=== PATIENT | female | born 1930 | race Caucasian/White ===

== ENCOUNTER 2017-09-14 21:11 | Emergency (ER) | payer MEDICARE, OTHER ==
[~2017-09-14] VITALS: Ht 154.9 cm; Wt 56.7 kg
--- NOTE | 2017-09-14 21:40 | NUR ---
TO BED 4 AN 87 YO FEMALE PATIENT BIBFAMILY C/O LEFT LOWER LEG SWELLING AND REDNESS. DISTAL CMS INTACT. NAD NOTED. VSS. PATIENT WITH O2 CANNULA AT 4LPM FROM HOME, HX COPD. COMFORT MEASURES RENDERED.
[2017-09-14] MEDS ORDERED: PIPERACILLIN /TAZOBACTAM 3.375 G VIAL IV ONE (22:29)
[2017-09-14] MEDS ORDERED: PIPERACILLIN /TAZOBACTAM 3.375 G in IV D5W 50 ML IV ONE (22:30)
--- NOTE | 2017-09-14 22:35 | NUR ---
started a saline lock on the lac g20, blood drawn and sent to lab.
[2017-09-14 22:48] LABS: BASOPHILS # (AUTO) 0.1 /CMM (0.0-0.2); BASOPHILS % (AUTO) 0.4 % (0.0-2.0); EOSINOPHILS # (AUTO) 0.1 /CMM (0.0-0.7); EOSINOPHILS % (AUTO) 0.5 % (0.0-6.0); HEMATOCRIT 40 % (33-45); HEMOGLOBIN 12.6 g/dL (11.5-14.8); LYMPHOCYTES # (AUTO) 1.8 /CMM (0.8-4.8); LYMPHOCYTES % (AUTO) 14.4 % (20.0-44.0); MEAN CORPUSCULAR HEMOGLOBIN 31 PG (26.0-33.0); MEAN CORPUSCULAR HGB CONC 32 g/dl (31.0-36.0); MEAN CORPUSCULAR VOLUME 97 fL (82-100); MONOCYTES # (AUTO) 0.7 /CMM (0.1-1.30); MONOCYTES % (AUTO) 5.9 % (2.0-12.0); NEUTROPHILS % (AUTO) 78.8 % (43.0-81.0); PLATELET COUNT (AUTO) 329 /CMM (150-450); RDW COEFFICIENT OF VARIATION 14.4 (11.5-15.0); RED BLOOD CELL COUNT(AUTO) 4.08 MIL/uL (4.0-5.2); WHITE BLOOD COUNT (AUTO) 12.6 K/uL (4.3-11.0)
[2017-09-14 23:05] LABS: CALCIUM, SERUM 9.7 mg/dL (8.5-10.1); CARBON DIOXIDE 38 mmol/L (21-32); CHLORIDE 102 mmol/L (98-107); CREATININE 1.2 mg/dL (0.6-1.3); GLUCOSE 116 mg/dL (74-106); POTASSIUM 4.2 mmol/L (3.5-5.1); SODIUM SERUM 141 mmol/L (136-145); UREA NITROGEN, BLOOD 30 mg/dL (7-18)
[2017-09-14 23:08] LABS: ALANINE AMINOTRANSFERASE 37 U/L (12-78); ALBUMIN 3.5 g/dL (3.4-5.0); ALKALINE PHOSPHATASE 38 U/L (46-116); ASPARTATE AMINOTRANSFERASE 28 U/L (15-37); BILIRUBIN,TOTAL 0.3 mg/dL (0.2-1.0)
[2017-09-14 23:29] LABS: INR 0.88 (0.87-1.13); PROTHROMBIN TIME 9.1 SECS (9.5-12.7)
--- NOTE | 2017-09-15 00:28 | NUR ---
IV removed. Catheter intact and site benign. Pressure and 4x4 applied to site. No bleeding noted. Patient discharged to home in stable condition. Written and verbal after care instructions given. Patient verbalizes understanding of instruction. Patient is ambulatory with the use of fww, accompanied by caregiver. Nad on dc. vss. No further complaints.
[2017-09-15 00:29] VITALS: BP 137/70
== END 2017-09-15 00:29 | disposition home or self-care (01) ==
LOC: ER 21:11
DX: L03.116 Cellulitis of left lower limb (principal); J44.9 Chronic obstructive pulmonary disease, unspecified; F41.9 Anxiety disorder, unspecified; F17.200 Nicotine dependence, unspecified, uncomplicated; Z88.6 Allergy status to analgesic agent
CPT/HCPCS: 36415; 80053; 83605; 85025; 85610; 85730; 96365; 99284; A4606; J2543 ×2; J7060; Z7610

== ENCOUNTER 2017-11-27 13:53 | Inpatient (IN) | payer MEDICARE, OTHER ==
[~2017-11-27] VITALS: Ht 154.9 cm; Wt 62.1 kg
--- NOTE | 2017-11-27 14:12 | NUR ---
BIB CAREGVER TO ED FROM HOME DT CONFUSION X 3 DAYS- WORST TODAY. PATIENT RECEIVED AWAKE AND ALERT, NOTED WITH EPISODE OF CONFUSION. PATIENT NOT COOPERATIVE WITH CARE BEING OFFERED AND VERNBALIZING WANTING TO HOME. PATIENT RECEIVED ON O2 VIA NC SATING 98%. PT DENIES ANY CHEST PAIN OR DISCOMFORT. PT IS AFEBRILE. VSS. MD SANDY AT BEDSIDE FOR EVALUATION.
[2017-11-27 14:47] LABS: BASOPHILS # (AUTO) 0.7 /CMM (0.0-0.2); BASOPHILS % (AUTO) 4.5 % (0.0-2.0); EOSINOPHILS % (AUTO) 0.3 % (0.0-6.0); HEMATOCRIT 42 % (33-45); HEMOGLOBIN 13.6 g/dL (11.5-14.8); LYMPHOCYTES # (AUTO) 2.2 /CMM (0.8-4.8); LYMPHOCYTES % (AUTO) 13.7 % (20.0-44.0); MEAN CORPUSCULAR HEMOGLOBIN 32 PG (26.0-33.0); MEAN CORPUSCULAR HGB CONC 33 g/dl (31.0-36.0); MEAN CORPUSCULAR VOLUME 98 fL (82-100); MONOCYTES # (AUTO) 0.8 /CMM (0.1-1.30); MONOCYTES % (AUTO) 5.1 % (2.0-12.0); NEUTROPHILS # (AUTO) 12.4 /CMM (1.8-8.9); NEUTROPHILS % (AUTO) 76.4 % (43.0-81.0); PLATELET COUNT (AUTO) 303 /CMM (150-450); RDW COEFFICIENT OF VARIATION 13.9 (11.5-15.0); RED BLOOD CELL COUNT(AUTO) 4.24 MIL/uL (4.0-5.2); WHITE BLOOD COUNT (AUTO) 16.1 K/uL (4.3-11.0)
[2017-11-27 14:57] LABS: CALCIUM, SERUM 9.4 mg/dL (8.5-10.1); CARBON DIOXIDE 36 mmol/L (21-32); CHLORIDE 99 mmol/L (98-107); CREATININE 1.4 mg/dL (0.6-1.3); GLUCOSE 166 mg/dL (74-106); POTASSIUM 4.2 mmol/L (3.5-5.1); SODIUM SERUM 140 mmol/L (136-145); UREA NITROGEN, BLOOD 40 mg/dL (7-18)
[2017-11-27 15:02] LABS: ALANINE AMINOTRANSFERASE 44 U/L (12-78); ALBUMIN 3.5 g/dL (3.4-5.0); ALKALINE PHOSPHATASE 40 U/L (46-116); ASPARTATE AMINOTRANSFERASE 23 U/L (15-37); BILIRUBIN,DIRECT 0.1 mg/dL (0.0-0.2); BILIRUBIN,TOTAL 0.3 mg/dL (0.2-1.0); TOTAL PROTEIN, SERUM 7.4 g/dL (6.4-8.2)
[2017-11-27 15:03] LABS: ACETAMINOPHEN < 2 ug/ml (10-30); ALCOHOL, BLOOD < 3 mg/dL (0-0); SALICYLATE 2.1 mg/dL (2.8-20.0)
[2017-11-27 15:05] LABS: TROPONIN I < 0.017 ng/mL (0.00-0.056)
[2017-11-27 15:09] LABS: BILIRUBIN,URINE Negative (NEGATIVE); BLOOD, URINE Negative Ery/uL (NEGATIVE); COLOR,URINE Yellow (YELLOW); KETONES,URINE Negative (NEGATIVE); LEUKOCYTE ESTERASE ,URINE Moderate (NEGATIVE); NITRITE, URINE Positive (NEGATIVE); PH,URINE 5.5 (5.0-8.0); PROTEIN,URINE Negative (NEGATIVE); UGLUCOSE Negative (NEGATIVE); UROBILINOGEN,URINE 0.2 EU/dL (0.2)
[2017-11-27 15:10] LABS: APPEARANCE,URINE SLIGHTLY HAZY (CLEAR)
[2017-11-27] MEDS ORDERED: PRED20TA PO (15:11)
[2017-11-27] MEDS ORDERED: LORA0.5T PO (15:11)
[2017-11-27] MEDS ORDERED: TRAZ-144 PO (15:11)
[2017-11-27] MEDS ORDERED: ESCI10TA PO (15:11)
[2017-11-27] MEDS ORDERED: HYDR-3980 PO (15:11)
[2017-11-27] MEDS ORDERED: FURO40TA5 PO (15:11)
[2017-11-27 15:25] LABS: RBC,URINE 0-2 /HPF (0-2); WBC,URINE 21-50 /HPF (0-3)
[2017-11-27 15:26] LABS: BACTERIA,URINE Moderate /HPF (None Seen); SQUAMOUS EPITHELIAL CELL,UR Few /HPF (None Seen)
--- NOTE | 2017-11-27 15:58 | NUR ---
TELE ROOM 310-7
[2017-11-27] MEDS ORDERED: IV NS 0.9% 1,000 ML BAG IV ONE (16:00)
[2017-11-27] MEDS ORDERED: CEFTRIAXONE 1GM BAG (ER ONLY) 1 GM/50 ML PIGGYBACK IV ONE (16:00)
[2017-11-27] MEDS ORDERED: CEFTRIAXONE 1GM BAG (ER ONLY) 50 ML IV ONE (16:11)
[2017-11-27] MEDS ORDERED: LORAZEPAM 0.5 MG TABLET PO PRN (16:30)
[2017-11-27] MEDS ORDERED: FUROSEMIDE 40 MG/4 ML VIAL IV ONE ×2 (16:30→22:00)
--- NOTE | 2017-11-27 16:49 | NUR ---
REPORT GIVEN TO BRENDA GARCIA
[2017-11-27 18:00] VITALS: BP 151/67
--- NOTE | 2017-11-27 18:24 | NUR ---
Tele/ RN - Admission Received pt from ER via monica awake, A/O x 3 at this time, denies pain, no apparent distress seen. Patient admitted for UTI/AMS. Tele shows SR, currently on 3 lpm via MO. Skin is intact, refused photo to be taken. Patient independent with bed mobility. All belongings accounted, refused valuables to be placed in the safe, private caregiver at bedside. Patient oriented to room and use of call light. All needs attended and met. Fall and aspiration precautions initiated. Admission orders noted and carried out. Will endorse to night RN for continuity of care.
[2017-11-27] MEDS ORDERED: IV NS 0.9% 1,000 ML BAG IV PRN (19:00)
[2017-11-27 20:00] VITALS: BP 145/60
[2017-11-27] MEDS ORDERED: MAGNESIUM HYDROXIDE 30 ML UDC PO PRN (20:00)
[2017-11-27] MEDS ORDERED: ZOLPIDEM TARTRATE 5 MG TABLET PO PRN (20:00)
[2017-11-27] MEDS ORDERED: ONDANSETRON HCL/PF 4 MG/2 ML VIAL IVP PRN (20:00)
[2017-11-27] MEDS ORDERED: ENOXAPARIN SODIUM 40 MG/0.4 ML DISP.SYRIN SQ SCH (20:00)
[2017-11-27] MEDS ORDERED: ACETAMINOPHEN 325 MG TABLET PO PRN (20:00)
[2017-11-27] MEDS ORDERED: Z GUARD REMEDY 2 OZ OINT TP PRN (20:00)
--- NOTE | 2017-11-27 20:12 | NUR ---
TELE VP RHEUMATOLOGY INITIAL NOTES SEEN PT IN BED AWAKE AND ALERT ON SITTING POSITION WHILE USING HER CELLPHONE. DENIES ANY PAIN OR NAY DISCOMFORT. AWARE WHERE SHE AT AND HOW TO USED THE CALL LIGHT SYSTEM. I TOLD HER REGARDING HER MEDICATION AND EDUCATE HER THE PURPOSE OF IT BUT PATIENT SAYING THAT SHE DOESN'T WANT LOVENOX AT ALL EVEN I TOLD HER THE PURPOSE OF IT. SHE STATED SHE TOLD THE THE MD EARLIER REGARDING TO THAT MEDICATION AND SHE CAME HERE BECAUSE OF SOB NOT A CHEST PAIN. I TOLD HER I WILL CALL HER MD TO LET HER KNOW. KEPT HER WARM AND COMFORTABLE AT ALL TIMES. AND ENCOURAGE HER TO USE THE CALL LIGHT IF SHE NEEDS SOME HELPED. PLACE CALL LIGHT AT REACH. WILL CONTINUE TO MONITOR. PT CAREGIVER WILL BE BACK LATER.
--- NOTE | 2017-11-27 20:45 | NUR ---
INFRASTRUCTURE TECH/NOTES PT REFUSED LOVENOX DR RYLIE MIRELES AWARE.
[2017-11-27 21:00] VITALS: BP 145/60
[2017-11-27] MEDS: ENOXAPARIN SODIUM 30 MG/0.3 ML DISP.SYRIN SQ SCH (21:00)
[2017-11-27] MEDS: TRAZODONE 50 MG TABLET PO SCH (21:37)
[2017-11-27] MEDS: HYDROCODONE/APAP 5/325MG 1 EACH TABLET PO PRN (21:38)
--- NOTE | 2017-11-27 22:00 | NUR ---
ULTRASONOGRAPHER NOTES ROUTINE MEDS GIVEN WELL HER NORCO TABLET PER PT REQUESTED FOR GENERALIZED PAIN.WILL RE- ASSESS LATER. TELE SINUS RHYTHM WITH PVC'S HEART RATE 74 PER MONITOR. KEPT HER WARM AND COMFORTABLE AT ALL TIMES. WILL CONTINUE TO MONITOR.PLACE CALL LIGHT AT REACH.
[2017-11-28] VITALS: BP_SYST 145; BP_SYST 153; BP_DIAS 69; BP_DIAS 74
--- NOTE | 2017-11-28 | NUR ---
SENIOR SYSTEMS ADMINISTRATOR/NOTES PT SLEEPING AT THIS TIME. SEEMS NO SIGNS OF ANY ACUTE DISTRESS NOTED. WILL CONTINUE MONITORING.
[2017-11-28 04:00] VITALS: BP 121/79
[2017-11-28] MEDS: HYDROCODONE/APAP 5/325MG 1 EACH TABLET PO PRN ×3 (05:58→21:35)
--- NOTE | 2017-11-28 05:58 | NUR ---
TELE TRAVELING AUDITOR NOTES PT WOKE UP AND COMPLAINING OF BACK PAIN AND SHE ALSO STATED SHE WANTS HER PAIN MEDS BEFORE CAN CLEAN HER UP. CRACKERS ALSO SERVED. NORCO TABLET GIVEN ORDERED.
--- NOTE | 2017-11-28 07:25 | NUR ---
TELE INDUSTRIAL RECRUITER CLOSING NOTES PT AWAKE AND ALERT WATCHING TV AT THIS TIME, PT SUBSIDE AFTER NORCO GIVEN. IVF STILL INFUSING ON HER LEFT AC PATENT AND INTACT. NO SIGNS OF ANY ACUTE DISTRESS NOTED. ALL DUE MEDS GIVEN AND ALL NEEDS MET. KEPT HER WARM AND COMFORTABLE AT ALL TIMES. TELE SR PE R MONITOR. PLACE CALL LIGHT AT REACH ENDORSE TO AM NURSE LUPE FOR CONTINUITY OF CARE.
--- NOTE | 2017-11-28 07:30 | NUR ---
GUARD MANAGER OPENING NOTES RECEIVED PATIENT IN STABLE CONDITION. IV LINE IS INTACT AND PATENT. IN NO APPARENT DISTRESS. BEDSIDE RAILS ARE UPX2. BED IS LOCKED AND LOWERED. CALL LIGHT IS WITHIN REACH. WILL CONTINUE TO MONITOR.
[2017-11-28 08:00] VITALS: BP 136/63
--- NOTE | 2017-11-28 08:00 | NUR ---
PATIENT REFUSED MORNING LABS.
[2017-11-28] MEDS: predniSONE 20 MG TABLET PO SCH (09:28)
[2017-11-28] MEDS: ESCITALOPRAM OXALATE (10 MG) 10 MG TABLET PO SCH (09:28)
[2017-11-28 14:47] LABS: HEMATOCRIT 37 % (33-45); HEMOGLOBIN 12.1 g/dL (11.5-14.8); LYMPHOCYTES # (AUTO) 0.6 /CMM (0.8-4.8); LYMPHOCYTES % (AUTO) 6.6 % (20.0-44.0); MEAN CORPUSCULAR HEMOGLOBIN 33 PG (26.0-33.0); MEAN CORPUSCULAR HGB CONC 33 g/dl (31.0-36.0); MEAN CORPUSCULAR VOLUME 99 fL (82-100); MONOCYTES # (AUTO) 0.2 /CMM (0.1-1.30); MONOCYTES % (AUTO) 1.6 % (2.0-12.0); NEUTROPHILS # (AUTO) 8.7 /CMM (1.8-8.9); NEUTROPHILS % (AUTO) 91.8 % (43.0-81.0); PLATELET COUNT (AUTO) 257 /CMM (150-450); RDW COEFFICIENT OF VARIATION 14.4 (11.5-15.0); RED BLOOD CELL COUNT(AUTO) 3.69 MIL/uL (4.0-5.2); WHITE BLOOD COUNT (AUTO) 9.5 K/uL (4.3-11.0)
[2017-11-28] MEDS: CEFTRIAXONE 1 G in IV D5W 50 ML IV SCH (14:59)
[2017-11-28 15:02] LABS: CARBON DIOXIDE 38 mmol/L (21-32); CHLORIDE 100 mmol/L (98-107); CREATININE 1.4 mg/dL (0.6-1.3); GLUCOSE 172 mg/dL (74-106); MAGNESIUM 2.2 mg/dL (1.8-2.4); PHOSPHORUS 3.8 mg/dL (2.5-4.9); POTASSIUM 4.3 mmol/L (3.5-5.1); SODIUM SERUM 142 mmol/L (136-145); UREA NITROGEN, BLOOD 31 mg/dL (7-18)
[2017-11-28 15:20] LABS: CHOLESTEROL 270 mg/dL (<200); HDL CHOLESTEROL 58 mg/dL (40-60); LDL 186 mg/dL (0-99); TRIGLYCERIDES 150 mg/dL (30-150)
[2017-11-28] MEDS: ALBUTEROL FS 2.5 MG/3 ML VIAL.NEB NEB PRN (15:23)
[2017-11-28 16:00] VITALS: BP 137/72
--- NOTE | 2017-11-28 18:14 | NUR ---
PATIENT REFUSED MRSA SWAB. Addendum: 11/28/17 at 1814 by LUPE LOVE RN EXPLAINED REASONS FOR PROCEDURE. PATIENT CONTINUES TO REFUSE.
--- NOTE | 2017-11-28 18:29 | NUR ---
MS RN CLOSING NOTES PATIENT IS ALERT AND ORIENTED. IN NO APPARENT DISTRESS. PATIENT IS ON 2L NC WITH GOOD SATURATIONS. PATIENT HAS NO SOB. RESPIRATORY TREATMENT PROVIDED DURING SHIFT. BEDSIDE RAILS ARE UP X2. BED IS LOCKED AND LOWERED. CALL LIGHT IS WITHIN REACH. WILL ENDORSE CARE TO MINE ENGINEERING SUPERVISOR NURSE FOR ROLA.
--- NOTE | 2017-11-28 19:35 | NUR ---
RN OPENING NOTES RECEIVED REPORT FROM DAYSHIFT BRENDA ANDRADE. FOUND Pt ASLEEP AT FIRST, BUT WOKE UP DURING REPORT. Pt IS A/OX3, AWARE OF SELF, KNOWS SHE IS IN [place], AND KNOWS WHAT MONTH WE ARE IN, BUT SHOWED SIGNS OF CONFUSION TO WHEN EXACTLY SHE WAS ADMITTED TO THE HOSPITAL. Pt STATES THAT SHE WAS BEEN HERE FOR 5 DAYS NOW, BUT Pt WAS JUST ADMITTED YESTERDAY 11/27/17 TO THE FLOOR. WHEN TRYING TO EXPLAIN TO THE Pt THAT SHE WAS ADMITTED TO THE FLOOR YESTERDAY ON THE , Pt GOT ANGRY CLAIMING THAT WE'RE WRONG AND DID NOT WANT TO STAY HERE FOR ANOTHER NIGHT, Pt WANTED US TO LEAVE THE ROOM AND LEAVE HER ALONE. LEFT THE ROOM TO LET THE Pt COOL DOWN. Pt SHOWED NO S/S OF ACUTE DISTRESS OR SOB. IV ACCESS ON LAC #20G, IVF NS @60ML/HR. SAFETY MEASURES IN PLACE. BED LOW, LOCKED, HOB ELEVATED, SIDE RAILS UP, CALL LIGHT AND BEDSIDE TABLE WITHIN REACH, BED ALARM ON. WILL CONTINUE TO MONITOR Pt FOR SAFETY.
[2017-11-28 20:00] VITALS: BP 129/62
[2017-11-28] MEDS: TRAZODONE 50 MG TABLET PO SCH (21:34)
[2017-11-28] MEDS: ENOXAPARIN SODIUM 30 MG/0.3 ML DISP.SYRIN SQ SCH (21:34)
--- NOTE | 2017-11-28 22:01 | NUR ---
COLLECTED MRSA SWAB SAMPLE. IN [place]. CALLED LAB TO INFORM THEM.
--- NOTE | 2017-11-29 06:35 | NUR ---
RN CLOSING NOTES NO SIGNIFICANT CHANGES IN Pt's CONDITION. Pt REMAINS IN STABLE CONDITION. NO S/S OF ACUTE DISTRESS OR SOB NOTED. ALL NEEDS MET AND ATTENDED TO. SAFETY MEASURES IN PLACE. WILL ENDORSE TO DAYSHIFT RN FOR Pt's ROLA.
[2017-11-29 07:29] LABS: CALCIUM, SERUM 8.9 mg/dL (8.5-10.1); CARBON DIOXIDE 37 mmol/L (21-32); CHLORIDE 103 mmol/L (98-107); CREATININE 1.1 mg/dL (0.6-1.3); GLUCOSE 96 mg/dL (74-106); MAGNESIUM 2.3 mg/dL (1.8-2.4); PHOSPHORUS 3.9 mg/dL (2.5-4.9); POTASSIUM 4.1 mmol/L (3.5-5.1); SODIUM SERUM 144 mmol/L (136-145); UREA NITROGEN, BLOOD 27 mg/dL (7-18)
--- NOTE | 2017-11-29 07:30 | NUR ---
MS RN OPENING NOTES RECEIVED PATIENT IN STABLE CONDITION. IN NO APPARENT DISTRESS. BEDSIDE RAILS ARE UPX2. BED IS LOCKED AND LOWERED. CALL LIGHT IS WITHIN REACH. WILL CONTINUE TO MONITOR.
[2017-11-29 07:35] LABS: BASOPHILS % (AUTO) 0.2 % (0.0-2.0); EOSINOPHILS # (AUTO) 0.1 /CMM (0.0-0.7); EOSINOPHILS % (AUTO) 0.8 % (0.0-6.0); HEMATOCRIT 34 % (33-45); HEMOGLOBIN 11.6 g/dL (11.5-14.8); LYMPHOCYTES % (AUTO) 22.9 % (20.0-44.0); MEAN CORPUSCULAR HEMOGLOBIN 34 PG (26.0-33.0); MEAN CORPUSCULAR HGB CONC 34 g/dl (31.0-36.0); MEAN CORPUSCULAR VOLUME 100 fL (82-100); MONOCYTES # (AUTO) 0.8 /CMM (0.1-1.30); MONOCYTES % (AUTO) 8.8 % (2.0-12.0); NEUTROPHILS # (AUTO) 5.8 /CMM (1.8-8.9); NEUTROPHILS % (AUTO) 67.3 % (43.0-81.0); PLATELET COUNT (AUTO) 232 /CMM (150-450); RDW COEFFICIENT OF VARIATION 14.1 (11.5-15.0); RED BLOOD CELL COUNT(AUTO) 3.42 MIL/uL (4.0-5.2); WHITE BLOOD COUNT (AUTO) 8.7 K/uL (4.3-11.0)
[2017-11-29 08:00] VITALS: BP 151/73
[2017-11-29] MEDS: predniSONE 20 MG TABLET PO SCH (09:18)
[2017-11-29] MEDS: ESCITALOPRAM OXALATE (10 MG) 10 MG TABLET PO SCH (09:18)
[2017-11-29] MEDS: IV NS 0.9% 1,000 ML IV PRN (09:23)
[2017-11-29] MEDS: ALBUTEROL FS 2.5 MG/3 ML VIAL.NEB NEB PRN (09:52)
[2017-11-29] MEDS ORDERED: FEE PK DOSING 1 MIN EA MC ONE (11:44)
[2017-11-29] MEDS: ALBUTEROL FS 2.5 MG/0.5 ML VIAL.NEB NEB SCH ×3 (12:06→19:12)
[2017-11-29] MEDS: IPRATROPIUM NEB FS 0.5 MG/2.5 ML AMPUL.NEB NEB SCH ×3 (12:06→19:12)
[2017-11-29] MEDS: HYDROCODONE/APAP 5/325MG 1 EACH TABLET PO PRN ×2 (13:14→20:53)
[2017-11-29 16:00] VITALS: BP 135/71
[2017-11-29] MEDS: CEFTRIAXONE 1 G in IV D5W 50 ML IV SCH (16:28)
--- NOTE | 2017-11-29 18:47 | NUR ---
MS RN CLOSING NOTES PATIENT IS ALERT AND ORIENTED IN NO APPARENT DISTRESS. BEDSIDE RAILS ARE UPX2. BED IS LOCKED AND LOWERED. CALL LIGHT IS WITHIN REACH. ALL NEEDS WERE MET. WILL ENDORSE CARE TO ENGINEERING OPERATOR NURSE FOR ROLA.
--- NOTE | 2017-11-29 19:35 | NUR ---
RN OPENING NOTES RECEIVED REPORT FROM TIAN RNLUPE. FOUND Pt AWAKE RESTING IN BED, WATCHING TV. Pt IS A/OX3, WITH TIMES OF CONFUSION. Pt IS WAITING FOR HER CAREGIVER ANDIE TO BRING BACK FOOD; ON REGULAR DIET. Pt IS VERBAL AND ABLE TO MAKE NEEDS KNOWN. IV ACCESS LAC #20G, NS @60ML/HR. SAFETY MEASURES IN PLACE. BED LOW, LOCKED, HOB ELEVATED, SIDE RAILS UP, CALL LIGHT AND BEDSIDE TABLE WITHIN REACH. WILL CONTINUE TO MONITOR Pt THROUGHOUT THE NIGHT FOR SAFETY.
[2017-11-29 20:00] VITALS: BP 149/81
[2017-11-29] MEDS: ENOXAPARIN SODIUM 30 MG/0.3 ML DISP.SYRIN SQ SCH (20:52)
[2017-11-29] MEDS: QUETIAPINE FUMARATE 25 MG TABLET PO SCH (22:26)
[2017-11-29] MEDS: TRAZODONE 50 MG TABLET PO SCH (22:26)
[2017-11-30] MEDS: IV NS 0.9% 1,000 ML IV PRN ×2 (04:13→20:58)
--- NOTE | 2017-11-30 06:40 | NUR ---
RN CLOSING NOTES NO SIGNIFICANT CHANGES IN Pt's CONDITION. Pt REMAINS IN STABLE CONDITION. NO S/S OF ACUTE DISTRESS OR SOB NOTED DURING THE NIGHT. ALL NEEDS MET AND ATTENDED TO. SAFETY MEASURES IN PLACE. WILL ENDORSE TO DAYSHIFT RN FOR Pt's ROLA.
[2017-11-30 07:14] LABS: BASOPHILS % (AUTO) 0.2 % (0.0-2.0); EOSINOPHILS # (AUTO) 0.1 /CMM (0.0-0.7); EOSINOPHILS % (AUTO) 0.7 % (0.0-6.0); HEMATOCRIT 32 % (33-45); HEMOGLOBIN 10.5 g/dL (11.5-14.8); LYMPHOCYTES # (AUTO) 1.5 /CMM (0.8-4.8); LYMPHOCYTES % (AUTO) 18.7 % (20.0-44.0); MEAN CORPUSCULAR HEMOGLOBIN 33 PG (26.0-33.0); MEAN CORPUSCULAR HGB CONC 33 g/dl (31.0-36.0); MEAN CORPUSCULAR VOLUME 100 fL (82-100); MONOCYTES # (AUTO) 0.8 /CMM (0.1-1.30); MONOCYTES % (AUTO) 9.3 % (2.0-12.0); NEUTROPHILS # (AUTO) 5.8 /CMM (1.8-8.9); NEUTROPHILS % (AUTO) 71.1 % (43.0-81.0); PLATELET COUNT (AUTO) 221 /CMM (150-450); RDW COEFFICIENT OF VARIATION 14.8 (11.5-15.0); RED BLOOD CELL COUNT(AUTO) 3.22 MIL/uL (4.0-5.2); WHITE BLOOD COUNT (AUTO) 8.1 K/uL (4.3-11.0)
--- NOTE | 2017-11-30 07:30 | NUR ---
MS RN OPENING NOTE RECEIVED BEDSIDE REPORT ON THE PATIENT. PATIENT IS A/O X3, AWAKE AND RESPONSIVE IN BED. BED IS LOCKED, IN LOWEST POSITION, SIDE RIALS UP X3, BED ALARM IS ON. PATIENT STATES SHE IS ABLE TO AMBULATE WITH A WALKER. INDEPENDENT WITH BED MOBILITY. SKIN IS INTACT. REPORTS PAIN 4-5/10 IN LOW BACK. STATES DOES NOT WANT PAIN MEDICATION AT THIS TIME. CURRENTLY ON 2L O2 SPO2 96%. ALL NEEDS ARE MET AT THIS TIME. CALL LIGHT WITHIN REACH. EDUCATED TO USE THE CALL LIGHT TO CALL FOR ASSISTANCE. PATIENT VERBALIZED UNDERSTANDING. WILL CONTINUE TO ASSESS/MONITOR THROUGHOUT THE SHIFT.
[2017-11-30] MEDS: ALBUTEROL FS 2.5 MG/0.5 ML VIAL.NEB NEB SCH ×5 (07:35→20:08)
[2017-11-30] MEDS: IPRATROPIUM NEB FS 0.5 MG/2.5 ML AMPUL.NEB NEB SCH ×5 (07:35→20:08)
[2017-11-30 07:36] LABS: CALCIUM, SERUM 8.3 mg/dL (8.5-10.1); CARBON DIOXIDE 35 mmol/L (21-32); CHLORIDE 107 mmol/L (98-107); GLUCOSE 89 mg/dL (74-106); MAGNESIUM 2.3 mg/dL (1.8-2.4); PHOSPHORUS 4.2 mg/dL (2.5-4.9); POTASSIUM 4.1 mmol/L (3.5-5.1); SODIUM SERUM 146 mmol/L (136-145); UREA NITROGEN, BLOOD 19 mg/dL (7-18)
[2017-11-30 08:00] VITALS: BP 160/67
--- NOTE | 2017-11-30 08:12 | NUR ---
RT NOTE: PATIENT REFUSED HER BREATHING TREATMENT AT THIS TIME. WILL NOTIFY NURSE.
--- NOTE | 2017-11-30 08:32 | NUR ---
RT NOTE: NURSE(SEVERO) NOTIFIED. PATIENT STATES SHE WILL TAKE THE BREATHING TREATMENT AFTER BREAKFAST.
--- NOTE | 2017-11-30 08:32 | NUR ---
RT REPORTED PATIENT REFUSED BREATHING TREATMENT. RN SPOKE TO THE PATIENT AND EXPLAINED RISKS AND BENEFITS OF BREATHING TREATMENT. PATIENT AGREED TO BREATHING TREATMENT. RT NOTIFIED.
--- NOTE | 2017-11-30 09:54 | NUR ---
PATIENT COMPLAINS OF SEVERE LBP. NORCO ADMINISTERED ORDERED.
[2017-11-30] MEDS: ESCITALOPRAM OXALATE (10 MG) 10 MG TABLET PO SCH (09:56)
[2017-11-30] MEDS: predniSONE 20 MG TABLET PO SCH (09:56)
[2017-11-30] MEDS: HYDROCODONE/APAP 5/325MG 1 EACH TABLET PO PRN ×2 (09:56→15:59)
--- NOTE | 2017-11-30 14:51 | NUR ---
PATIENT COMPLAINED OF ANXIETY. ATIVAN ADMINISTERED PRESCRIBED. CAREGIVER AT THE BEDSIDE.
--- NOTE | 2017-11-30 15:59 | NUR ---
PATIENT PRESENTS WITH DIAPHORESIS AND COMPLAINS OF ACUTE SEVERE PAIN 10/10 IN LOW BACK. NORCO ADMINISTERED ORDERED.
[2017-11-30 16:00] VITALS: BP 151/70
[2017-11-30] MEDS: CEFTRIAXONE 1 G in IV D5W 50 ML IV SCH (16:04)
--- NOTE | 2017-11-30 18:11 | NUR ---
CALLED PRADEEP SCHWAB ON BEHALF OF SEVERO GUTIERREZ. PATIENT IS HAVING EXTREME ANXIETY AND PRN ATIVAN IS HAVING NOT EFFECT. PER PATIENT AND MEDICAL ASSISTANT PER DIEM REPORT, SEROQUEL SHOWS GOOD EFFECTIVENESS AT EASING THE THE PATIENT'S ANXIETY. JOSSELIN GAVE A VERBAL ORDER FOR A ONE TIME DOSE OF SEROQUEL 12.5 NOW. ORDERS PLACED.
--- NOTE | 2017-11-30 18:29 | NUR ---
PATIENT PRESENTS WITH DIAPHORESIS AND DYSPNEA AT REST. PATIENT REPORTS" I CANNOT BREATH I AM DYING". SPO2 ON 2L 93%. janki CHAVEZ INFORMED. vERBAL ORDER OBTAINED FOR SEROQUEL ORALLY ONE TIME 12.5 MG NOW. ORDER READ BACK AND VERIFIED. MEDICATION ADMINISTERED PRESCRIBED.
[2017-11-30] MEDS ORDERED: QUETIAPINE FUMARATE 25 MG TABLET PO ONE (18:30)
--- NOTE | 2017-11-30 18:54 | NUR ---
MS RN CLOSING NOTE PATIENT IS A/O X2, FORGETFUL AND CONFUSED. ASLEEP, EASILY AWAKEN IN BED. BED IS LOCKED, IN LOWEST POSITION, SIDE RIALS UP X3, BED ALARM IS ON. INDEPENDENT WITH BED MOBILITY. SKIN IS INTACT. DENIES PAIN AT THIS TIME. REPORTS ANXIETY BEING ALLEVIATED WITH THE MEDICATION. CURRENTLY ON 2L O2 SPO2 93%. ALL DUE MEDS ADMINISTERED. HOB KEPT ELEVATED AT ALL TIMES. REMINDED THE PATIENT TO TURN AND REPOSITION EVERY 2 HRS AND NEEDED FOR COMFORT AND MAINTENANCE OF FUNCTIONAL ALIGNMENT OF THE LIMBS. ALL NEEDS ARE MET AT THIS TIME. CALL LIGHT WITHIN REACH. EDUCATED TO USE THE CALL LIGHT TO CALL FOR ASSISTANCE. PATIENT VERBALIZED UNDERSTANDING. WILL ENDORSE TO THE COMBINED RAIL OPERATOR NURSE FOR ROLA.
--- NOTE | 2017-11-30 19:30 | NUR ---
MS RN INITIAL NOTES PT IS IN BED AWAKE AND ALERT. PT APPEARS TO BE ANXIOUS AND STATING SHE HAVING A "HARD TIME BREATHING", PER REPORT PT HAS BEEN HAVING SIMILAR EPISODES THROUGHOUT THE DAY AND IS RELIVED WITH MEDICATION. PT IS ON 2L NC. HOB IS ELEVATED. DENIES PAIN AT THIS TIME. IV ACCESS IS INTACT AND PATENT WITH FLUIDS RUNNING. BED IS IN LOW AND LOCKED POSITION, CALL LIGHT WITHIN REACH. WILL CONTINUE TO MONITOR PT
[2017-11-30 20:00] VITALS: BP 157/72
[2017-11-30] MEDS: ENOXAPARIN SODIUM 30 MG/0.3 ML DISP.SYRIN SQ SCH (20:57)
[2017-11-30] MEDS: TRAZODONE 50 MG TABLET PO SCH (21:00)
[2017-11-30] MEDS: QUETIAPINE FUMARATE 25 MG TABLET PO SCH (21:00)
[2017-12-01] MEDS: HYDROCODONE/APAP 5/325MG 1 EACH TABLET PO PRN ×2 (06:26→14:21)
--- NOTE | 2017-12-01 06:54 | NUR ---
,MS RN CLOSING NOTES PT IS IN BED RESTING. HAD AN EPISODE OF SOB, NORCO WAS GIVEN AND PT SATURATION IMPROVED. NO SIGNS OF DISTRESS, DENIES PAIN AT THIS TIME. IV ACCESS IS NO LONGER PATENT. ATTEMPTED TO INSERT NEW IV BUT UNSUCCESSFUL, WILL ENDORSE. ALL NEEDS WERE ANTICIPATED AND MET. BED IS IN LOW AND LOCKED POSITION, CALL LIGHT WITHIN REACH. WILL ENDORSE TO DAYSHIFT
--- NOTE | 2017-12-01 07:20 | NUR ---
ms rn initial notes Received patient in bed, awake, head of bed elevated, no SOB or distress noted, on 02 @ 2lpm via NC. Patient is alert and oriented x 2-3 forgetful at times. No IV access as endorsed by awake overnight monitor RN, due to unable to insert IV. bilateral arm bruising noted and edema. No complaint of pain or discomfort at this time. Kept patient clean and comfortable in bed, call light with in patient reach, will continue to monitor accordingly.
[2017-12-01] MEDS: IPRATROPIUM NEB FS 0.5 MG/2.5 ML AMPUL.NEB NEB SCH ×4 (07:54→19:50)
[2017-12-01] MEDS: ALBUTEROL FS 2.5 MG/0.5 ML VIAL.NEB NEB SCH ×4 (07:54→19:50)
[2017-12-01 08:00] VITALS: BP 120/56
[2017-12-01] MEDS: predniSONE 20 MG TABLET PO SCH (08:34)
[2017-12-01] MEDS: ESCITALOPRAM OXALATE (10 MG) 10 MG TABLET PO SCH (08:34)
[2017-12-01 16:00] VITALS: BP 134/60
[2017-12-01] MEDS: SULFAMETH/TRIMETH 800/160 MG 1 UDTAB TABLET PO SCH (16:26)
[2017-12-01] MEDS ORDERED: ASPI-605 PO (17:20)
[2017-12-01] MEDS ORDERED: SULF1TAB3 PO (17:20)
[2017-12-01] MEDS ORDERED: PNEUMOCOCCAL 23-VAL P-SAC VAC 0.5 ML VIAL SQ ONE (18:00)
--- NOTE | 2017-12-01 19:16 | NUR ---
ms rn closing notes All needs provided, attended, and anticipated, kept patient clean and comfortable in bed Endorsed to next shift RN to continue care.
--- NOTE | 2017-12-01 19:35 | NUR ---
MS RN INITIAL NOTES PT IS AWAKE AND ALERT SITTING IN CHAIR AT BEDSIDE. CAREGIVER IS ALSO AT BEDSIDE. DENIES PAIN AT THIS TIME. NO SOB OR DISTRESS, BREATHING EVENLY AND UNLABORED ON NC. NO IV ACCESS, MD AWARE. D/C POSTPONED PENDING PULMONARY CONSULT. CALL LIGHT WITHIN REACH. WILL CONTINUE TO MONITOR PT
[2017-12-01] MEDS: QUETIAPINE FUMARATE 25 MG TABLET PO SCH (21:03)
[2017-12-01] MEDS: ENOXAPARIN SODIUM 30 MG/0.3 ML DISP.SYRIN SQ SCH (21:03)
[2017-12-01] MEDS: TRAZODONE 50 MG TABLET PO SCH (21:04)
--- NOTE | 2017-12-01 21:58 | NUR ---
MS RN NOTES PT REFUSED CXR, EDUCATION WAS GIVEN. WILL TRY AGAIN IN THE MORNING
[2017-12-01] MEDS ORDERED: FUROSEMIDE 20 MG/2 ML VIAL IV SCH (23:00)
--- NOTE | 2017-12-01 23:42 | NUR ---
MS RN NOTES PT IS REFUSING IV. EXPLAINED THE NEED FOR IV LASIX THAT WAS ORDERED BY THE DOCTOR. PT CONTINUES TO REFUSE
--- NOTE | 2017-12-01 23:46 | NUR ---
CONTACTED JOSSELIN, LASIX WAS SWITCHED TO PO
[2017-12-02] MEDS ORDERED: FUROSEMIDE 40 MG TABLET PO ONE
[2017-12-02] MEDS: HYDROCODONE/APAP 5/325MG 1 EACH TABLET PO PRN ×3 (06:11→14:33)
--- NOTE | 2017-12-02 06:16 | NUR ---
PT IS REFUSING BLOOD DRAWS
--- NOTE | 2017-12-02 06:27 | NUR ---
MS RN CLOSING NOTES PT IS AWAKE AND ALERT, CONFUSED. PT CONTINUES TO REFUSE TO COMPLY WITH ANY NEW ORDERS GIVEN BY THE MD. PT STATED "I CAN'T BREATHE" AND REQUESTS A NORCO BUT CONTINUES TO SAY THAT SHE FEELS OUT OF BREATH WHEN CHANGING HER DIAPER. PT NOW SITTING UP IN WHEELCHAIR AT BEDSIDE. NO IV ACCESS, MD AWARE. CALL LIGHT WITHIN REACH. WILL ENDORSE TO DAYSHIFT.
[2017-12-02] MEDS: IPRATROPIUM NEB FS 0.5 MG/2.5 ML AMPUL.NEB NEB SCH ×4 (07:08→19:51)
[2017-12-02] MEDS: ALBUTEROL FS 2.5 MG/0.5 ML VIAL.NEB NEB SCH ×4 (07:08→19:51)
--- NOTE | 2017-12-02 07:20 | NUR ---
ms rn initial notes Received patient sitting on her wheelchair, with 02 @lpm via NC, no SOB or distress noted, calm and comfortable. No IV access MD aware. No complaint of pain or discomfort at this time. Verbally responsive. Call light with in patient reach, will continue to monitor accordingly.
[2017-12-02 08:00] VITALS: BP 139/70
[2017-12-02] MEDS: predniSONE 20 MG TABLET PO SCH (08:41)
[2017-12-02] MEDS: ESCITALOPRAM OXALATE (10 MG) 10 MG TABLET PO SCH (08:41)
[2017-12-02] MEDS: SULFAMETH/TRIMETH 800/160 MG 1 UDTAB TABLET PO SCH ×2 (08:41→20:06)
--- NOTE | 2017-12-02 10:07 | NUR ---
ms rn notes Dr. Lopez came seen and examined the patient and ordered Prednisone 40mg tab x 1 now then 60 mg Daily. All orders carried out and noted. Will continue to monitor accordingly.
[2017-12-02] MEDS ORDERED: predniSONE 20 MG TABLET PO ONE (10:30)
[2017-12-02 16:00] VITALS: BP 160/82
--- NOTE | 2017-12-02 16:05 | NUR ---
ms rn notes Transfer care to [facility]. Report given.
--- NOTE | 2017-12-02 16:05 | NUR ---
MS RN NOTES RECEIVED REPORT FROM LIN GUTIERREZ. PATIENT AWAKE, ALERT AND ORIENTED, ABLE TO MAKE NEEDS KNOWN AND FOLLOW SIMPLE INSTRUCTIONS. BREATHING EVEN AND UNLABORED. NO SOB OR ACUTE DISTRESS NOTED AT THIS TIME. PATIENT AFEBRILE, SKIN DRY AND WARM TO TOUCH. NO CHANGES IN LOC NOTED. WILL CONTINUE TO MONITOR
--- NOTE | 2017-12-02 18:51 | NUR ---
MS RN NOTES PATIENT RESTING INSIDE ROOM, AWAKE, ALERT AND ORIENTED. ABLE TO MAKE NEEDS KNOWN AND FOLLOW SIMPLE INSTRUCTIONS. PATIENT BREATHING EVEN AND UNLABORED. DENIES ANY PAIN OR DISCOMFORT AT THIS TIME. PATIENT AFEBRILE, SKIN DRY AND WARM TO TOUCH. NO SOB OR ACUTE DISTRESS NOTED AT THIS TIME. BILATERAL UPPER SIDE RAILS UP AND LOCKED. BED LOCKED AND IN LOW POSITION, CALL LIGHT PLACED WITHIN EASY REACH. WILL ENDORSE TO INCOMING SHIFT
--- NOTE | 2017-12-02 19:35 | NUR ---
MS RN INITIAL NOTES PT IS AWAKE AND ALERT SITTING IN CHAIR AT BEDSIDE. CAREGIVER IS ALSO AT BEDSIDE. DENIES PAIN AT THIS TIME BUT IS REQUESTING A NORCO TO HELP WITH HER BREATHING. NO SOB OR DISTRESS, BREATHING EVENLY AND UNLABORED ON NC. NO IV ACCESS, MD AWARE. CALL LIGHT WITHIN REACH. WILL CONTINUE TO MONITOR PT
[2017-12-02 20:00] VITALS: BP 127/89
[2017-12-02] MEDS: ENOXAPARIN SODIUM 30 MG/0.3 ML DISP.SYRIN SQ SCH (21:00)
[2017-12-02] MEDS: TRAZODONE 50 MG TABLET PO SCH (21:09)
[2017-12-02] MEDS: QUETIAPINE FUMARATE 25 MG TABLET PO SCH (21:09)
--- NOTE | 2017-12-03 06:21 | NUR ---
MS RN CLOSING NOTES PT IS IN BED SLEEPING, EASILY AROUSED. NO SIGNS OF SOB OR DISTRESS, BREATHING EVENLY AND UNLABORED ON 2L NC. NO IV ACCESS. NO ACUTE CHANGES THROUGHOUT THE SHIFT. ALL NEEDS WERE ANTICIPATED AND MET. BED IS IN LOW AND LOCKED POSITION, CALL LIGHT IS WITHIN REACH. WILL ENDORSE TO DAYSHIFT
[2017-12-03] MEDS: IPRATROPIUM NEB FS 0.5 MG/2.5 ML AMPUL.NEB NEB SCH ×2 (07:19→11:08)
[2017-12-03] MEDS: ALBUTEROL FS 2.5 MG/0.5 ML VIAL.NEB NEB SCH ×2 (07:19→11:08)
--- NOTE | 2017-12-03 07:30 | NUR ---
RN MS NOTES PT IN BED, AWAKE, ALERT AND ORIENTED, NO COMPLAINT OF PAIN, NOT IN DISTRESS, CALL LIGHT WITHIN REACH, NEEDS ATTENDED, KEPT COMFORTABLE IN BED.
[2017-12-03 08:00] VITALS: BP 138/63
[2017-12-03] MEDS ORDERED: predniSONE 20 MG TABLET PO SCH (09:00)
[2017-12-03] MEDS: ESCITALOPRAM OXALATE (10 MG) 10 MG TABLET PO SCH (09:53)
[2017-12-03] MEDS: SULFAMETH/TRIMETH 800/160 MG 1 UDTAB TABLET PO SCH (09:54)
[2017-12-03] MEDS: HYDROCODONE/APAP 5/325MG 1 EACH TABLET PO PRN (09:54)
[2017-12-03] MEDS ORDERED: PRED20TA PO (12:01)
--- NOTE | 2017-12-03 14:00 | NUR ---
RN MS NOTES PT IN BED, AWAKE, ALERT AND ORIENTED, RESPIRATIONS NORMAL AND NOT LABORED, ON O2 AT 2LPM VIA NASAL CANULA, SEEN BY DR. DODD AND DR. OMARI MD'S CLEARED PT FOR DISCHARGE, SEEN BY PHUC FERNÁNDEZ, DISCHARGE ORDER GIVEN, DISCHARGE AND MEDICATION INSTRUCTIONS PROVIDED TO PT, VERBALIZED UNDERSTANDING, PRESCRIPTION GIVEN TO PT, BELONGINGS ACCOUNTED FOR, LEFT VIA WHEELCHAIR, LEFT WITH CAREGIVER IN STABLE CONDITION.
== END 2017-12-03 12:00 | disposition home health service (06) | DRG 871 ==
LOC: ER 13:55 → TELE 16:26 → MED 11-28 08:34
PROVIDERS: ADMIT Nurse Practitioner Acute Care; ATTEND Nurse Practitioner Acute Care
DX: A41.9 Sepsis, unspecified organism (principal); N17.0 Acute kidney failure with tubular necrosis; J96.21 Acute and chronic respiratory failure with hypoxia; G93.41 Metabolic encephalopathy; J84.9 Interstitial pulmonary disease, unspecified; I50.33 Acute on chronic diastolic (congestive) heart failure; E87.2 Acidosis; N39.0 Urinary tract infection, site not specified; B96.20 Unspecified Escherichia coli [E. coli] as the cause of diseases classified elsewhere; F41.9 Anxiety disorder, unspecified; R65.20 Severe sepsis without septic shock; Z87.891 Personal history of nicotine dependence; Z99.81 Dependence on supplemental oxygen; J44.9 Chronic obstructive pulmonary disease, unspecified; R73.9 Hyperglycemia, unspecified; R55 Syncope and collapse; J98.01 Acute bronchospasm
CPT/HCPCS: 36415; 70450-TC; 71045-TC; 80048-TC; 80061-TC; 80076-TC; 80305; 81000-TC; 83605-TC; 83735-TC; 83880; 84100-TC; 84484-TC; 85025-TC; 87081-TC; 87086-TC; 87186-TC; 90732; 93307-TC; 94799-TC; 97110-TC; 97112-TC; 97116-TC; 97530-TC; A4606; G0480; J0696; J1650; J1940; J7030; J7060; Z7610

== ENCOUNTER 2018-01-29 13:49 | Outpatient (CLI) | payer MEDICARE, OTHER ==
[~2018-01-29 13:49] MED LIST: ASPI-605 PO; ESCI10TA PO; FURO40TA5 PO; HYDR-3980 PO; LORA0.5T PO; PRED20TA PO; SULF1TAB3 PO; TRAZ-213 PO
[2018-01-31] MEDS ORDERED: CEPH-569 PO (13:58)
== END 2018-01-29 23:59 | disposition home or self-care (01) ==
LOC: WOU 13:49
PROVIDERS: ATTEND Podiatrist Foot & Ankle Surgery
DX: S80.12XA Contusion of left lower leg, initial encounter (principal); L03.116 Cellulitis of left lower limb; M79.662 Pain in left lower leg; R60.0 Localized edema; S90.31XA Contusion of right foot, initial encounter; X58.XXXA Exposure to other specified factors, initial encounter; Y93.9 Activity, unspecified; Y92.89 Other specified places as the place of occurrence of the external cause; J44.9 Chronic obstructive pulmonary disease, unspecified; F41.9 Anxiety disorder, unspecified; Z87.891 Personal history of nicotine dependence; Z88.8 Allergy status to other drugs, medicaments and biological substances; Z79.82 Long term (current) use of aspirin; Z79.891 Long term (current) use of opiate analgesic; Z74.01 Bed confinement status
CPT/HCPCS: A6402; G0463

== ENCOUNTER 2018-01-29 15:48 | Inpatient (IN) | payer MEDICARE, OTHER ==
[~2018-01-29] VITALS: Ht 154.9 cm; Wt 71.2 kg
--- NOTE | 2018-01-29 16:15 | NUR ---
MS/RN Direct admit Direct admit from wound center with cellulitis and left lower leg hematoma. Patient admitted but refusing to have skin checked. Awaiting admitting orders.
--- NOTE | 2018-01-29 17:00 | NUR ---
MS/RN S/B Dr Atkinson Seen by Dr Atkinson - surgery to be scheduled for tomorrow morning at 1030. Pre op labs/x-rays ordered. Cardiac consult ordered for Dr Garcia tomorrow.
[2018-01-29 17:20] LABS: BASOPHILS # (AUTO) 0.2 /CMM (0.0-0.2); BASOPHILS % (AUTO) 1.3 % (0.0-2.0); EOSINOPHILS % (AUTO) 0.2 % (0.0-6.0); HEMATOCRIT 44 % (33-45); HEMOGLOBIN 14.1 g/dL (11.5-14.8); LYMPHOCYTES # (AUTO) 1.3 /CMM (0.8-4.8); LYMPHOCYTES % (AUTO) 10.7 % (20.0-44.0); MEAN CORPUSCULAR HGB CONC 33 g/dl (31.0-36.0); MEAN CORPUSCULAR VOLUME 99 fL (82-100); MONOCYTES # (AUTO) 0.8 /CMM (0.1-1.30); NEUTROPHILS # (AUTO) 9.8 /CMM (1.8-8.9); NEUTROPHILS % (AUTO) 80.8 % (43.0-81.0); PLATELET COUNT (AUTO) 336 /CMM (150-450); RDW COEFFICIENT OF VARIATION 13.5 (11.5-15.0); RED BLOOD CELL COUNT(AUTO) 4.42 MIL/uL (4.0-5.2); WHITE BLOOD COUNT (AUTO) 12.1 K/uL (4.3-11.0)
[2018-01-29 17:36] LABS: ALANINE AMINOTRANSFERASE 55 U/L (12-78); ALBUMIN 3.9 g/dL (3.4-5.0); ALKALINE PHOSPHATASE 44 U/L (46-116); ASPARTATE AMINOTRANSFERASE 24 U/L (15-37); BILIRUBIN,TOTAL 0.5 mg/dL (0.2-1.0); CALCIUM, SERUM 10.3 mg/dL (8.5-10.1); CHLORIDE 99 mmol/L (98-107); CREATININE 1.4 mg/dL (0.6-1.3); GLUCOSE 159 mg/dL (74-106); POTASSIUM 4.6 mmol/L (3.5-5.1); SODIUM SERUM 141 mmol/L (136-145); TOTAL PROTEIN, SERUM 7.6 g/dL (6.4-8.2); UREA NITROGEN, BLOOD 38 mg/dL (7-18)
[2018-01-29 17:37] LABS: INR 0.9 (0.87-1.13)
[2018-01-29 17:39] LABS: CARBON DIOXIDE 44 mmol/L (21-32)
[2018-01-29 17:59] VITALS: BP 133/68
--- NOTE | 2018-01-29 18:00 | NUR ---
MS/RN Consents Consent forms signed ready for surgery tomorrow.
[2018-01-29] MEDS ORDERED: IV NS 0.9% 1,000 ML IV PRN (18:18)
[2018-01-29] MEDS ORDERED: ACETAMINOPHEN 325 MG TABLET PO PRN (18:30)
[2018-01-29] MEDS ORDERED: ONDANSETRON HCL/PF 4 MG/2 ML VIAL IVP PRN (18:30)
[2018-01-29] MEDS ORDERED: Z GUARD REMEDY 2 OZ OINT TP PRN (18:30)
[2018-01-29] MEDS ORDERED: MAG HYDROX/AL HYDROX/SIMETH 30 ML UDC PO PRN (18:30)
[2018-01-29] MEDS ORDERED: MAGNESIUM HYDROXIDE 30 ML UDC PO PRN (18:30)
[2018-01-29] MEDS ORDERED: ZOLPIDEM TARTRATE 5 MG TABLET PO PRN (18:30)
[2018-01-29] MEDS ORDERED: LORAZEPAM 0.5 MG TABLET PO PRN (18:30)
--- NOTE | 2018-01-29 18:40 | NUR ---
MS/RN End note Patient in stable condition, sat up in wheelchair. Refusing to change into gown and get onto the bed, still unable to complete skin assessment. Stated that she would change when her ambulatory care nurse returns. Will endorse to maintenance technician 3rd shift nurse.
[2018-01-29 20:10] VITALS: BP 154/73
[2018-01-29] MEDS: PIPERACILLIN /TAZOBACTAM 2.25 G in IV D5W 50 ML IV SCH (20:27)
[2018-01-29] MEDS: TRAZODONE 50 MG TABLET PO SCH (22:00)
[2018-01-29] MEDS: HYDROCODONE/APAP 10/325MG 1 EA TABLET PO PRN (22:42)
[2018-01-29] MEDS ORDERED: ALBUTEROL FS 2.5 MG/3 ML VIAL.NEB NEB PRN (23:30)
[2018-01-30] MEDS ORDERED: PIPERACILLIN /TAZOBACTAM 4.5 G in IV D5W 50 ML IV SCH ×2
[2018-01-30] MEDS: PIPERACILLIN /TAZOBACTAM 2.25 G in IV D5W 50 ML IV SCH ×5 (01:36→23:00)
[2018-01-30] MEDS: HYDROCODONE/APAP 10/325MG 1 EA TABLET PO PRN (02:34)
--- NOTE | 2018-01-30 06:50 | NUR ---
MS RN NOTES AWAKE & RESPONSIVE. NOT IN ANY DISTRESS. NO SOB NOTED. DENIES ANY PAIN OR DISCOMFORT AT THIS TIME. WITH IV-HL PATENT & INTACT. AM CARE DONE. MONITORED ACCORDINGLY. CALL LIGHT WITHIN REACH. BED IN LOWEST POSITION. SR UP X 3 WITH BED ALARM ON FOR SAFETY. WILL ENDORSE TO NEXT SHIFT.
[2018-01-30 07:42] LABS: CARBON DIOXIDE 36 mmol/L (21-32); CHLORIDE 97 mmol/L (98-107); CREATININE 1.7 mg/dL (0.6-1.3); GLUCOSE 174 mg/dL (74-106); MAGNESIUM 2.5 mg/dL (1.8-2.4); PHOSPHORUS 4.8 mg/dL (2.5-4.9); POTASSIUM 5.1 mmol/L (3.5-5.1); SODIUM SERUM 141 mmol/L (136-145); UREA NITROGEN, BLOOD 40 mg/dL (7-18)
[2018-01-30 08:00] VITALS: BP 138/80
--- NOTE | 2018-01-30 08:00 | NUR ---
MS 2 RN AM NOTES PT SLEEPING COMFORTABLY BUT AROUSABLE.NOT IN ANY DISTRESS.WITH O2 AT 3L/MIN VIA N/C.NO SOB NOTED. DENIES ANY PAIN OR DISCOMFORT AT THIS TIME. WITH IV-HL TO RT HAND PATENT & INTACT WITH IVF NS AT 200 ML/HR INFUSING WELL. AM CARE DONE.PT REFUSED TO HAVE SKIN ASSESSMENT DONE.WILL TRY LATER.WITH BLE WEEPING AND CHANGED PILLOW CASE OFTEN.ELEVATED BLE WITH PILLOWS.WAS CLEARED BY DR SALCIDO FOR LLE WOUND DEBRIDEMENT PROCEDURE.ON NPO.MONITORED ACCORDINGLY. CALL LIGHT WITHIN REACH. BED IN LOWEST POSITION. SR UP X 3 WITH BED ALARM ON FOR SAFETY.
[2018-01-30] MEDS: ESCITALOPRAM OXALATE (10 MG) 10 MG TABLET PO SCH (08:36)
[2018-01-30] MEDS: IV NS 0.9% 1,000 ML IV PRN ×2 (08:37→20:01)
[2018-01-30 09:00] LABS: CHOLESTEROL 321 mg/dL (<200); HDL CHOLESTEROL 52 mg/dL (40-60); LDL 221 mg/dL (0-99); TRIGLYCERIDES 257 mg/dL (30-150)
[2018-01-30] MEDS ORDERED: methylPREDNISolone SOD SUCC 40 MG/ML VIAL IV SCH (09:00)
[2018-01-30] MEDS ORDERED: ASPIRIN EC 81 MG TABLET.DR PO SCH (09:00)
[2018-01-30] MEDS ORDERED: FUROSEMIDE 40 MG TABLET PO SCH (09:00)
--- NOTE | 2018-01-30 10:00 | NUR ---
UNABLE TO TAKE PHOTOS OF THE RLE BECAUSE PT WAS BEING PICKED FOR O.R. Addendum: 01/30/18 at 1716 by ANDIE LEZAMA RN UNABLE TO TAKE PHOTOS OF LLE BECAUSE PT WAS BEING PICKED FOR O.R. PROCEDURE.
--- NOTE | 2018-01-30 10:25 | NUR ---
PT WENT TO OR FOR LLE WOUND DEBRIDEMENT BY DR RENAE WITH STABLE V/S.PT'S SON,DOROTEO AT BEDSIDE AND GAVE PT'S NECKLACE TO HIM.
[2018-01-30] MEDS ORDERED: BUPIVACAINE 0.25% 75 MG/30 ML VIAL ONE ×2 (10:54→11:27)
[2018-01-30] MEDS ORDERED: LIDOCAINE 1%-EPI 1:100,000 20 ML VIAL ONE (10:55)
[2018-01-30] MEDS ORDERED: KETOROLAC TROMETHAMINE INJ 30 MG/ML VIAL ONE (11:11)
[2018-01-30] MEDS ORDERED: DEXTROSE 50%-WATER 50 ML DISP.SYRIN IV PRN (11:30)
--- NOTE | 2018-01-30 12:00 | NUR ---
PT CAME BACK FROM O.R. S/P LLE WOUND DEBRIDEMENT BY DR RENAE WITH STABLE V/S.BP 121/81 HR 89 RR 18 T97.7 O2 SAT 97% ON O2 AT 2L/MIN VIA N/C.
[2018-01-30] MEDS: BLOOD SUGAR DIAGNOSTIC 1 EACH STRIP VI SCH ×3 (12:47→22:15)
--- NOTE | 2018-01-30 13:13 | NUR ---
RT NOTE ATTEMPTED ABG, PT REFUSED. NO SOB OR RESP DISTRESS NOTED. RN ANDIE JAMA.
--- NOTE | 2018-01-30 13:26 | NUR ---
PT REFUSED ABG INSPITE OF EXPLAINING ITS RISKS AND BENEFITS.CALLED PT'S SON,DOROTEO WHO STATED THAT HIS MOM IS GETTING ALL BRUISED AND SWOLLEN WITH THIS BLOOD TESTS AND THAT HE WILL THINK ABOUT IT AND WILL CALL BACK LATER.
[2018-01-30] MEDS: INSULIN REGULAR, HUMAN 100 UNIT/ML 3 ML VIAL SQ PRN (13:30)
[2018-01-30 16:00] VITALS: BP 123/60
[2018-01-30] MEDS: HYDROCODONE/APAP 5/325MG 1 EACH TABLET PO PRN (16:51)
[2018-01-30] MEDS: *INSULIN REGULAR(HUMULIN R)HUM 100 UNIT/ML VIAL SQ PRN ×2 (18:10→22:17)
--- NOTE | 2018-01-30 19:40 | NUR ---
RN INITIAL NOTES: RECEIVED REPORT FROM ANDIE Jessica, PT IN BED, AWAKE, A/O X2-3 ON 3L O2 VIA NC, RESPIRATION EVEN AND UNLABORED, PT HAS CAREGIVER AT BED SIDE, PT BEEN REFUSING MOST OF LAB DRAWS AND BED BATH, CAREGIVER AND PT'S SON AWARE, AWARE, PT STILL REFUSED TO HAVE HER BLOOD DRAWN FOR LABS, EDUCATION PROVIDED TO THE PT. PT HAS IV ACCESS PATENT AND FLUSHING WELL, INFUSING WITH IVF ORDERED. S/P LLE DEBRIDEMENT BY DR RODRIGUEZ 01/30/18 DRESSING C/D/I, BLE OFFLOADED. SAFETY PRECAUTIONS FOR FALL INITIATED, CALL LIGHT IN REACH, WILL CONTINUE MONITORING PT.
[2018-01-30 20:00] VITALS: BP 129/64
[2018-01-30] MEDS: TRAZODONE 50 MG TABLET PO SCH (22:00)
--- NOTE | 2018-01-30 22:17 | NUR ---
BS 183: BLOOD SUGAR CHECKED AND RESULT IS 183, 3UNITS OF INSULIN GIVEN PER SLIDING SCALE, PT REFUSED DESYREL AT THIS TIME
[2018-01-31] MEDS: HYDROCODONE/APAP 5/325MG 1 EACH TABLET PO PRN ×2 (01:51→12:46)
--- NOTE | 2018-01-31 01:51 | NUR ---
PRN NORCO: PT C/O BILATERAL LEG PAIN 04/14 REQUESTING FOR NORCO. PRN NORCO 5/325 MG TAB PO ADMINISTERED TO THE PT AT THIS TIME, WILL CONTINUE MONITORING PT
--- NOTE | 2018-01-31 02:15 | NUR ---
RN NOTES: P REQUESTING FOR ANOTHER NORCO, CLAIMING THAT SHE WAS TOLD BY MD THAT SHE CAN GET NORCO WHENEVER SHE WANTS IT, INFORMED PT THAT NORCO IS GIVEN EVERY 4HRS NEEDED FOR PAIN, PT STATED "NO I NEED IT TO HELP ME BREATHE", INFORMED PT THAT THERE IS PRN BREATHING TREATMENT IF SHE NEEDS ONE, BUT PT STATED WHAT SHE NEEDS IS NORCO, EXPLAINED TO PT THAT SHE JUST TOOK NORCO AND ITS TOO CLOSE TO GIVE ANOTHER ONE, ORAL PILL TAKES 30MINS TO AN HOUR TO TAKE EFFECT. PT DOESNT LISTEN AND TRYING TO INSIST AND YELLED AT STAFF STATING TO CALL HER OWN DOCTOR AND HER SON BECAUSE HER OWN DOCTOR STATED SHE CAN TAKE NORCO WHENEVER SHE NEEDS IT. PT EVEN CURSED STAFF AND DOCTORS OF [facility]. INFORMED PT THE EARLIEST SHE COULD GET ANOTHER NORCO IS 45MINS TO AN HOUR.
[2018-01-31 02:40] VITALS: BP 142/66
[2018-01-31] MEDS: IV NS 0.9% 1,000 ML IV PRN ×2 (02:41→16:53)
[2018-01-31] MEDS: HYDROCODONE/APAP 10/325MG 1 EA TABLET PO PRN (02:53)
--- NOTE | 2018-01-31 02:54 | NUR ---
PRN NORCO: PT C/O 10/10 BILATERAL LEG PAIN YELLING GRASPING SITE FACIAL GRIMACE NOTED, VS TAKEN AND RECORDED PRIOR TO GIVING THE MEDICATION, PRN NORCO 10/325 MG TAB PO ADMINISTERED AT THIS TIME.
--- NOTE | 2018-01-31 04:06 | NUR ---
REFUSAL FOR TURNING AND REPOSITIONING: PT REFUSED TO BE TURN AND REPOSITION AT THIS TIME, EDUCATION PROVIDED TO THE PT
--- NOTE | 2018-01-31 06:00 | NUR ---
REFUSAL FOR BLOOD DRAW/AM LABS: PT REFUSED TO HAVE HER AM LABS DRAWN, EDUCATION PROVIDED TO THE PT, INFORMED ROLL CONTOUR GRINDER TO COME BACK AFTER BREAKFAST AND SEE MAYBE PT MAY CHANGE HER MIND
[2018-01-31] MEDS: PIPERACILLIN /TAZOBACTAM 2.25 G in IV D5W 50 ML IV SCH ×4 (06:02→23:04)
[2018-01-31] MEDS: BLOOD SUGAR DIAGNOSTIC 1 EACH STRIP VI SCH ×4 (06:16→22:26)
[2018-01-31] MEDS: INSULIN REGULAR, HUMAN 100 UNIT/ML 3 ML VIAL SQ PRN ×3 (06:16→13:24)
--- NOTE | 2018-01-31 06:16 | NUR ---
BS 93: BLOOD SUGAR CHECKED AND RESULT IS 93, NO INSULIN COVERAGE GIVEN PER SLIDING SCALE, WILL MONITOR PT FOR ANY S/S OF HYPOGLYCEMIA
--- NOTE | 2018-01-31 06:54 | NUR ---
RN CLOSING NOTES: PT IN BED, REMAINS A/O X2 ON 3L OXYGEN VIA NC, IV ACCESS PATENT AND FLUSHING WELL, ON HL PT REFUSING FOR IVF, ALSO REFUSING FOR BLOOD DRAWS DESPITE PROVIDING EDUCATION. BLE KEPT OFFLOADED. DRESSING ON LLE REMAINS IN PLACED NO ACTIVE BLEEDING NOTED. VS REMAINS STABLE, NEEDS ATTENDED,SAFETY PRECAUTION FOR FALL REMAINS ENGAGED, CALL LIGHT IN REACH, WILL ENDORSE TO DAY RN FOR ROLA.
[2018-01-31 08:00] VITALS: BP 137/71
--- NOTE | 2018-01-31 08:00 | NUR ---
MS 2 RN AM NOTES PT SLEEPING COMFORTABLY BUT AROUSABLE.NOT IN ANY DISTRESS.WITH O2 AT 3L/MIN VIA N/C.NO SOB NOTED. DENIES ANY PAIN OR DISCOMFORT AT THIS TIME. WITH IV-HL TO RT HAND PATENT & INTACT WITH IVF NS AT 200 ML/HR INFUSING WELL. AM CARE DONE.WOUND TX DONE TO RLE.S/P WOUND DEBRIDEMENT OF LLE BY DR RENAE 01/30/18.WITH BLE WEEPING AND CHANGED PILLOW CASES OFTEN.ELEVATED BLE WITH PILLOWS.WAS CLEARED BY DR SALCIDO FOR LLE WOUND DEBRIDEMENT PROCEDURE.ON NPO.MONITORED ACCORDINGLY. CALL LIGHT WITHIN REACH. BED IN LOWEST POSITION. SR UP X 3 WITH BED ALARM ON FOR SAFETY.
[2018-01-31] MEDS: ESCITALOPRAM OXALATE (10 MG) 10 MG TABLET PO SCH (08:18)
[2018-01-31] MEDS: methylPREDNISolone SOD SUCC 40 MG/ML VIAL IV SCH (08:18)
[2018-01-31] MEDS ORDERED: CEPH-569 PO (13:58)
[2018-01-31 16:04] VITALS: BP 146/71
--- NOTE | 2018-01-31 18:49 | NUR ---
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
--- NOTE | 2018-01-31 18:49 | NUR ---
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 Addendum: 01/31/18 at 1902 by ANDIE LEZAMA RN PT'S SON,DOROTEO CALLED SAYING CG,MICHELL ISN'T WILLING TO USE HER OWN CAR TO NETWORK SUPPORT SPECIALIST THE PT.NOTIFIED THE PARTNER MANAGEMENT CONSULTANT TO ARRANGE TRANSPORTATION FOR TOMORROW AT [address] MASON MADE AWARE OF PT'S PENDING DISCHARGE THAT WILL BE TOMORROW AM.
--- NOTE | 2018-01-31 19:50 | NUR ---
RN INITIAL NOTES: RECEIVED REPORT FROM ANDIE Jessica, PT IN BED, AWAKE, ON 3L O2 RESPIRATION EVEN AND UNLABORED, IV ACCESS PATENT AND FLUSHING WELL, INFUSING WITH NS AT 100ML/HR. LLE DRESSING C/D/I, CHANGED BY THIS AFTERNOON. BLE OFFLOADED. 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
[2018-01-31 20:00] VITALS: BP 153/75
[2018-01-31 21:00] VITALS: BP 143/66
[2018-01-31] MEDS: *INSULIN REGULAR(HUMULIN R)HUM 100 UNIT/ML VIAL SQ PRN (22:26)
[2018-01-31] MEDS: TRAZODONE 50 MG TABLET PO SCH (22:26)
--- NOTE | 2018-01-31 22:27 | NUR ---
BS 130: PT'S BLOOD SUGAR 130, NO INSULIN COVERAGE GIVEN PER SLIDING SCALE, WILL MONITOR PT FOR ANY S/S OF HYPOGLYCEMIA
[2018-02-01] MEDS: HYDROCODONE/APAP 10/325MG 1 EA TABLET PO PRN (01:22)
--- NOTE | 2018-02-01 01:22 | NUR ---
PRN NORCO: PT C/O 05/15 LEFT LEG PAIN REQUESTING FOR NORCO, PRN NORCO 10/325 MG TAB PO ADMINISTERED TO THE PT AT THIS TIME, WILL CONTINUE MONITORING PT
[2018-02-01] MEDS: IV NS 0.9% 1,000 ML IV PRN (03:25)
[2018-02-01] MEDS: HYDROCODONE/APAP 5/325MG 1 EACH TABLET PO PRN ×2 (04:46→08:56)
--- NOTE | 2018-02-01 04:46 | NUR ---
PRN NORCO: PT C/O BILATERAL LEG PAIN CLAIMED IT 04/14 REQUESTING FOR NORCO, PRN NORCO ADMINISTERED AT THIS TIME. ALSO PT REQUESTED FOR SNACK SUCH JELLO AND JUICE.
[2018-02-01] MEDS: PIPERACILLIN /TAZOBACTAM 2.25 G in IV D5W 50 ML IV SCH (05:10)
[2018-02-01] MEDS: INSULIN REGULAR, HUMAN 100 UNIT/ML 3 ML VIAL SQ PRN (05:57)
[2018-02-01] MEDS: BLOOD SUGAR DIAGNOSTIC 1 EACH STRIP VI SCH (07:07)
--- NOTE | 2018-02-01 07:36 | NUR ---
RN CLOSING NOTES: PT IN BED, REMAINS A/O X2 ON 3L OXYGEN VIA NC, REFUSING FOR BLOOD DRAWS DESPITE PROVIDING EDUCATION. BLE KEPT OFFLOADED. DRESSING ON LLE REMAINS IN PLACED NO ACTIVE BLEEDING NOTED. VS REMAINS STABLE, NEEDS ATTENDED,SAFETY PRECAUTION FOR FALL REMAINS ENGAGED, CALL LIGHT IN REACH, WILL ENDORSE TO DAY RN FOR ROLA.
--- NOTE | 2018-02-01 07:40 | NUR ---
RN OPENING NOTES: PT IN BED, REMAINS A/O X2 ON 3L OXYGEN VIA NC, REFUSING BLOOD DRAWS DESPITE PROVIDING EDUCATION, IV ACCESS WITH LEAKING REFUSING TO REMOVE AT THIS TIME AND REINSERTION. BLE KEPT OFFLOADED. DRESSING ON LLE REMAINS IN PLACED NO ACTIVE BLEEDING NOTED. VS REMAINS STABLE, NEEDS ATTENDED,SAFETY PRECAUTIONS IN PLACE, CALL LIGHT IN REACH, WILL CONTINUE TO MONITOR.
[2018-02-01 08:00] VITALS: BP 143/73
[2018-02-01] MEDS: methylPREDNISolone SOD SUCC 40 MG/ML VIAL IV SCH (08:10)
[2018-02-01] MEDS: ESCITALOPRAM OXALATE (10 MG) 10 MG TABLET PO SCH (08:10)
[2018-02-01 08:41] VITALS: BP 148/78
--- NOTE | 2018-02-01 10:35 | NUR ---
[employer]PER[employer] NOTES: PT IN BED, REMAINS A/O X2 ON 3L OXYGEN VIA NC, REFUSING BLOOD DRAWS DESPITE PROVIDING EDUCATION, IV ACCESS WITH LEAKING REMOVED WELL ID BAND PT WITH DISCHARGE ORDERS.BLE KEPT OFFLOADED. DRESSING ON LLE REMAINS IN PLACED NO ACTIVE BLEEDING NOTED. VS REMAINS STABLE, ALL DISCHARGE INSTRUCTIONS REVIEWED WITH SON VIA TELEPHONE AND PATIENT WITH VERBAL UNDERSTANDING NOTED. PATIENT REFUSING AM MEDS NURSING EDUCATION REINFORCED. PICTURES TAKEN AND PLACED IN CHART. DISCHARGED IN STABLE CONDITION SON AWARE, REPORT ALSO GIVEN TO EMT FOR CONTINUITY OF CARE
[2018-02-01] MEDS ORDERED: predniSONE 20 MG TABLET PO SCH (11:00)
== END 2018-02-01 10:30 | disposition home health service (06) | DRG 579 ==
LOC: WOUND2 15:48
PROVIDERS: ADMIT Podiatrist Foot & Ankle Surgery; ATTEND Internal Medicine
PROC: 0J9P0ZZ Drainage of Left Lower Leg Subcutaneous Tissue and Fascia, Open Approach (ICD-10-PCS; principal; 2018-01-30 10:30)
DX: L03.116 Cellulitis of left lower limb (principal); N17.0 Acute kidney failure with tubular necrosis; J84.9 Interstitial pulmonary disease, unspecified; J96.11 Chronic respiratory failure with hypoxia; E78.5 Hyperlipidemia, unspecified; F32.9 Major depressive disorder, single episode, unspecified; Z87.891 Personal history of nicotine dependence; Z99.81 Dependence on supplemental oxygen; E11.22 Type 2 diabetes mellitus with diabetic chronic kidney disease; E86.0 Dehydration; F41.9 Anxiety disorder, unspecified; N18.9 Chronic kidney disease, unspecified; Z79.52 Long term (current) use of systemic steroids; S80.12XA Contusion of left lower leg, initial encounter; X58.XXXA Exposure to other specified factors, initial encounter; Y93.9 Activity, unspecified; Y92.009 Unspecified place in unspecified non-institutional (private) residence as the place of occurrence of the external cause; E11.51 Type 2 diabetes mellitus with diabetic peripheral angiopathy without gangrene; F09 Unspecified mental disorder due to known physiological condition; J44.9 Chronic obstructive pulmonary disease, unspecified
CPT/HCPCS: 36415; 71045-TC; 80048-TC; 80053-TC; 80061-TC; 82962-TC; 83735-TC; 84100-TC; 85025-TC; 85610-TC; 87081-TC; A6209; A6253; A6402; A6403; J0690; J1815; J1885; J2405; J2543; J2704; J2920; J3490; J7030; J7050; J7060; Z7610